=== PATIENT | male | born 1960 | race Caucasian/White ===

== ENCOUNTER 2018-06-11 17:40 | Emergency (ER) | payer BC ==
[~2018-06-11] VITALS: Ht 185.4 cm; Wt 95.3 kg
[~2018-06-11 17:40] MED LIST: AZOR 5/40 MG1 TABLET PO; BACTRIM,SEPT1 TABLET PO; IMODIUM A-D2 MG PO; MALARONE 250-11 EACH PO; MULTIVITAMIN; MULTIVITAMIN1 EAC2 PO
[2018-06-11] MEDS ORDERED: MOTRIN800 MG PO (20:00)
[2018-06-11 20:15] VITALS: BP 158/93
== END 2018-06-11 20:30 | disposition home or self-care (01) ==
LOC: EME 17:40
DX: S86.912A Strain of unspecified muscle(s) and tendon(s) at lower leg level, left leg, initial encounter (principal); X50.9XXA Other and unspecified overexertion or strenuous movements or postures, initial encounter; I10 Essential (primary) hypertension
CPT/HCPCS: 73564; 99281; 99284